=== PATIENT | male | born 1945 | race Hispanic/Latino ===

== ENCOUNTER → 2020-07-17 | Day surgery (SDC) | payer MEDICARE ==
[2020-07-15 14:39] LABS: BASOPHILS % 0.5 % (0.0-1.0); EOSINOPHILS # (AUTO) 0.3 (0.0-0.4); HEMATOCRIT 40.1 % (38.2-49.6); HEMOGLOBIN 13.4 g/dL (14.0-18.0); LYMPHOCYTES # (AUTO) 2.1 (1.0-3.2); LYMPHOCYTES % 24.5 % (18.0-39.1); MEAN CORPUSCULAR HEMOGLOBIN 29.3 pg (28-32); MEAN CORPUSCULAR HGB CONC 33.4 g/dL (31-35); MEAN CORPUSCULAR VOLUME 87.6 fL (81-99); MONOCYTES # (AUTO) 0.9 (0.2-0.8); NEUTROPHILS # (AUTO) 5.3 (2.1-6.9); NEUTROPHILS % 61.4 % (38.7-80.0); PLATELET COUNT 273 x10e3/uL (140-360); RED BLOOD COUNT 4.58 x10e6/uL (4.3-5.7); RED CELL DISTRIBUTION WIDTH 13.2 % (11.7-14.4)
[2020-07-15 14:56] LABS: ANION GAP 11.3 mmol/L (8-16); BLOOD UREA NITROGEN 9 mg/dL (7-26); BUN/CREATININE RATIO 11 (6-25); CALCIUM 8.7 mg/dL (8.4-10.2); CARBON DIOXIDE 25 mmol/L (22-29); CHLORIDE 100 mmol/L (98-107); CREATININE, SERUM 0.83 mg/dL (0.72-1.25); EST GLOMERULAR FILTRATION RATE > 60 ML/MIN (60-); GLUCOSE 105 mg/dL (74-118); POTASSIUM 4.3 mmol/L (3.5-5.1); SODIUM 132 mmol/L (136-145)
[~2020-07-17] MED LIST: AMLODIPINE BES2.5 MG PO; ASPIR 8181 MG PO; B&O 60MG R/S 60 MG SUPP PR ONE; DEXAMETHASONE SOD PHOS INJ 4 MG/ML VIAL ONE; DIOVAN320 MG PO; FLOMAX0.4 MG PO; GENTAMICIN 80MG/NS 100 ML 200 ML IV ONE; IOPAMIDOL 300MG/ML 50ML INFUS..BTL IV ONE; LIDOCAINE HCL 2% LOCAL INJ 5 ML SDV VIAL INJ ONE; METOPROLOL SUCC25 MG PO; MIDAZOLAM HCL 2 MG/2 ML VIAL ONE; ONDANSETRON HCL INJ 2MG/ML 2ML 2 MG/ML VIAL ONE; PIPER-TAZ 3.375 GM 50 ML ONE; PREDNISONE5 MG PO; PROPOFOL IV EMULSION 10 MG/ML 20 ML VIAL ONE; SEVOFLURANE INHAL SOLN 250 ML PEN BTL ONE; SIMVASTATIN10 MG PO; VALSARTAN-HCTZ1 EAC4 PO; VASOTEC10 MG PO
[2020-07-17 10:45] VITALS: BP 140/78
== END | disposition home or self-care (01) ==
LOC: OR 06:54
PROVIDERS: ATTEND Urology
DX: C61 Malignant neoplasm of prostate (principal); N41.1 Chronic prostatitis; N40.1 Benign prostatic hyperplasia with lower urinary tract symptoms; N13.8 Other obstructive and reflux uropathy; R39.14 Feeling of incomplete bladder emptying; N40.2 Nodular prostate without lower urinary tract symptoms; N32.89 Other specified disorders of bladder; I69.351 Hemiplegia and hemiparesis following cerebral infarction affecting right dominant side; M06.9 Rheumatoid arthritis, unspecified; I10 Essential (primary) hypertension; E78.5 Hyperlipidemia, unspecified; K21.9 Gastro-esophageal reflux disease without esophagitis; I49.3 Ventricular premature depolarization; Z01.810 Encounter for preprocedural cardiovascular examination; Z01.812 Encounter for preprocedural laboratory examination; Z01.818 Encounter for other preprocedural examination; Z20.822 Contact with and (suspected) exposure to COVID-19; Z79.82 Long term (current) use of aspirin; Z86.16 Personal history of COVID-19
CPT/HCPCS: 52005; 55700; C9740; 36415; 71046; 74420; 76872; 76998; 80048; 85025; 88305; 88342; 93005; C1758; J1100; J1580; J2001; J2250; J2405; J2543; L8699; U0002

== ENCOUNTER 2020-12-11 06:30 | Inpatient (IN) | payer MEDICARE ==
[2020-12-06 10:39] LABS: BASOPHILS % 0.3 % (0.0-1.0); EOSINOPHILS # (AUTO) 0.1 (0.0-0.4); EOSINOPHILS % 0.7 % (0.0-6.0); HEMATOCRIT 39.9 % (38.2-49.6); HEMOGLOBIN 13.3 g/dL (14.0-18.0); LYMPHOCYTES # (AUTO) 2.2 (1.0-3.2); LYMPHOCYTES % 20.2 % (18.0-39.1); MEAN CORPUSCULAR HEMOGLOBIN 28.8 pg (28-32); MEAN CORPUSCULAR HGB CONC 33.3 g/dL (31-35); MEAN CORPUSCULAR VOLUME 86.4 fL (81-99); MONOCYTES # (AUTO) 0.7 (0.2-0.8); MONOCYTES % 6.7 % (4.4-11.3); NEUTROPHILS # (AUTO) 7.9 (2.1-6.9); NEUTROPHILS % 71.1 % (38.7-80.0); PLATELET COUNT 238 x10e3/uL (140-360); RED BLOOD COUNT 4.62 x10e6/uL (4.3-5.7); RED CELL DISTRIBUTION WIDTH 15.1 % (11.7-14.4)
[2020-12-06 11:03] LABS: ANION GAP 12.5 mmol/L (8-16); CALCIUM 9.1 mg/dL (8.4-10.2); CREATININE, SERUM 0.88 mg/dL (0.72-1.25); POTASSIUM 4.5 mmol/L (3.5-5.1)
[~2020-12-11] VITALS: Ht 165.1 cm; Wt 69.9 kg
[~2020-12-11 06:30] MED LIST changes: -B&O 60MG R/S 60 MG SUPP PR ONE; -DEXAMETHASONE SOD PHOS INJ 4 MG/ML VIAL ONE; -GENTAMICIN 80MG/NS 100 ML 200 ML IV ONE; -IOPAMIDOL 300MG/ML 50ML INFUS..BTL IV ONE; -LIDOCAINE HCL 2% LOCAL INJ 5 ML SDV VIAL INJ ONE; -MIDAZOLAM HCL 2 MG/2 ML VIAL ONE; -ONDANSETRON HCL INJ 2MG/ML 2ML 2 MG/ML VIAL ONE; -PIPER-TAZ 3.375 GM 50 ML ONE; -PROPOFOL IV EMULSION 10 MG/ML 20 ML VIAL ONE; -SEVOFLURANE INHAL SOLN 250 ML PEN BTL ONE
[2020-12-11] MEDS ORDERED: CEFTRIAXONE 1 GM VIAL ONE (07:10)
[2020-12-11] MEDS ORDERED: GENTAMICIN 80MG/NS 100 ML 200 ML IV ONE (07:11)
[2020-12-11] MEDS ORDERED: SODIUM CHLORIDE 0.9% 50ML 50 ML ONE (07:11)
[2020-12-11] MEDS ORDERED: SODIUM CHLORIDE 0.9% 1000ML 1,000 ML ONE (07:11)
[2020-12-11] MEDS ORDERED: B&O 60MG R/S 60 MG SUPP PR ONE (08:50)
[2020-12-11] MEDS ORDERED: IOPAMIDOL 300MG/ML 50ML INFUS..BTL IV ONE (08:50)
[2020-12-11] MEDS ORDERED: ACETAMINOPHEN/CODEINE 300MG - 30MG TAB PO PRN (11:15)
[2020-12-11] MEDS ORDERED: DIPHENHYDRAMINE HCL 25 MG CAP PO PRN (11:15)
[2020-12-11] MEDS ORDERED: B&O 60MG R/S 60 MG SUPP PR PRN (11:15)
[2020-12-11] MEDS ORDERED: ONDANSETRON HCL INJ 2MG/ML 2ML 2 MG/ML VIAL IV PRN (11:15)
[2020-12-11] MEDS ORDERED: PHENAZOPYRIDINE HCL 100 MG TAB PO PRN (11:15)
[2020-12-11] MEDS ORDERED: FENTANYL CITRATE/PF 100MCG/2 ML INJ ONE ×2 (11:28→13:30)
[2020-12-11 11:45] LABS: BASOPHILS % 0.2 % (0.0-1.0); EOSINOPHILS % 0.2 % (0.0-6.0); HEMATOCRIT 42.7 % (38.2-49.6); HEMOGLOBIN 13.8 g/dL (14.0-18.0); LYMPHOCYTES # (AUTO) 1.3 (1.0-3.2); LYMPHOCYTES % 10.2 % (18.0-39.1); MEAN CORPUSCULAR HEMOGLOBIN 28.8 pg (28-32); MEAN CORPUSCULAR HGB CONC 32.3 g/dL (31-35); MONOCYTES # (AUTO) 0.2 (0.2-0.8); MONOCYTES % 1.9 % (4.4-11.3); NEUTROPHILS # (AUTO) 11.1 (2.1-6.9); NEUTROPHILS % 86.7 % (38.7-80.0); PLATELET COUNT 219 x10e3/uL (140-360); RED CELL DISTRIBUTION WIDTH 15.4 % (11.7-14.4)
[2020-12-11 12:12] LABS: ANION GAP 13.1 mmol/L (8-16); CALCIUM 8.3 mg/dL (8.4-10.2); CREATININE, SERUM 0.76 mg/dL (0.72-1.25); POTASSIUM 4.1 mmol/L (3.5-5.1)
[2020-12-11] MEDS ORDERED: PROPOFOL IV EMULSION 10 MG/ML 20 ML VIAL ONE (12:22)
[2020-12-11] MEDS ORDERED: POVIDONE IODINE 0.05% 0.05 % ML PO ONE (12:22)
[2020-12-11] MEDS ORDERED: LIDOCAINE HCL 2% LOCAL INJ 5 ML SDV VIAL INJ ONE (12:22)
[2020-12-11] MEDS ORDERED: HYDROCORTISONE SOD SUCCINATE 100 MG VIAL ONE (12:22)
[2020-12-11] MEDS ORDERED: EPHEDRINE SULFATE INJ 50 MG/ML VIAL ONE (12:22)
[2020-12-11] MEDS ORDERED: SEVOFLURANE INHAL SOLN 250 ML PEN BTL ONE (12:22)
[2020-12-11] MEDS ORDERED: ONDANSETRON HCL INJ 2MG/ML 2ML 2 MG/ML VIAL ONE (12:22)
[2020-12-11 13:51] VITALS: BP 113/56
[2020-12-11 13:53] VITALS: BP 116/58
[2020-12-11] MEDS: D5.45%NS/KCL 20MEQ 1,000 ML IV SCH ×2 (14:53→21:07)
[2020-12-11] MEDS: DOCUSATE SODIUM 100 MG CAP PO SCH (16:29)
[2020-12-11 16:42] VITALS: BP 115/57
[2020-12-11 20:24] VITALS: BP 105/59
[2020-12-11] MEDS ORDERED: SIMVASTATIN 20 MG TAB PO SCH (21:00)
[2020-12-11 22:12] VITALS: BP 105/59
[2020-12-11 23:48] VITALS: BP 103/47
[2020-12-12] MEDS: D5.45%NS/KCL 20MEQ 1,000 ML IV SCH (04:55)
[2020-12-12 05:04] VITALS: BP 100/45
[2020-12-12 05:52] LABS: BASOPHILS % 0.2 % (0.0-1.0); EOSINOPHILS # (AUTO) 0.1 (0.0-0.4); EOSINOPHILS % 0.9 % (0.0-6.0); HEMATOCRIT 37.2 % (38.2-49.6); HEMOGLOBIN 12.3 g/dL (14.0-18.0); LYMPHOCYTES # (AUTO) 2.8 (1.0-3.2); LYMPHOCYTES % 21.6 % (18.0-39.1); MEAN CORPUSCULAR HEMOGLOBIN 28.7 pg (28-32); MEAN CORPUSCULAR HGB CONC 33.1 g/dL (31-35); MEAN CORPUSCULAR VOLUME 86.9 fL (81-99); MONOCYTES # (AUTO) 0.9 (0.2-0.8); MONOCYTES % 6.9 % (4.4-11.3); NEUTROPHILS # (AUTO) 9.1 (2.1-6.9); NEUTROPHILS % 69.9 % (38.7-80.0); PLATELET COUNT 240 x10e3/uL (140-360); RED BLOOD COUNT 4.28 x10e6/uL (4.3-5.7); RED CELL DISTRIBUTION WIDTH 15.7 % (11.7-14.4)
[2020-12-12 06:23] LABS: ANION GAP 10.6 mmol/L (8-16); CALCIUM 8.3 mg/dL (8.4-10.2); CREATININE, SERUM 0.72 mg/dL (0.72-1.25); POTASSIUM 3.6 mmol/L (3.5-5.1)
[2020-12-12 07:39] VITALS: BP 126/54
[2020-12-12 07:44] VITALS: BP 126/54
[2020-12-12] MEDS: DOCUSATE SODIUM 100 MG CAP PO SCH (08:18)
[2020-12-12] MEDS ORDERED: CEFTRIAXONE 1 GM in SODIUM CHLORIDE 0.9% 50ML 50 ML IV SCH (09:00)
[2020-12-12] MEDS ORDERED: AMLODIPINE BESYLATE 5 MG TAB PO SCH (09:00)
[2020-12-12] MEDS ORDERED: VALSARTAN 160 MG TAB PO SCH (09:00)
[2020-12-12] MEDS ORDERED: TAMSULOSIN HCL 0.4 MG CAP PO SCH (09:00)
[2020-12-12] MEDS ORDERED: HYDROCHLOROTHIAZIDE 25 MG TAB PO SCH (09:00)
[2020-12-12] MEDS ORDERED: PREDNISONE 5 MG TAB PO SCH (09:00)
[2020-12-12] MEDS ORDERED: METOPROLOL SUCCINATE 25 MG TAB XL PO SCH (09:00)
[2020-12-12] MEDS ORDERED: CEFTIN PO (09:25)
[2020-12-16] MEDS ORDERED: ASPIRIN 81 MG CHEW TAB PO SCH (09:00)
== END 2020-12-12 10:46 | disposition home or self-care (01) | DRG 713 ==
LOC: OR 06:30 → PACU V 11:03 → MED/SURG 13:50
PROVIDERS: ADMIT Internal Medicine; ATTEND Internal Medicine
PROC: BT141ZZ Fluoroscopy of Kidneys, Ureters and Bladder using Low Osmolar Contrast (ICD-10-PCS; 2020-12-11)
PROC: 0TPD8DZ Removal of Intraluminal Device from Urethra, Via Natural or Artificial Opening Endoscopic (ICD-10-PCS; 2020-12-11)
PROC: 0T7D8ZZ Dilation of Urethra, Via Natural or Artificial Opening Endoscopic (ICD-10-PCS; principal; 2020-12-11 09:13)
PROC: 0V508ZZ Destruction of Prostate, Via Natural or Artificial Opening Endoscopic (ICD-10-PCS; 2020-12-11 09:13)
DX: N40.1 Benign prostatic hyperplasia with lower urinary tract symptoms (principal); N13.8 Other obstructive and reflux uropathy; C61 Malignant neoplasm of prostate; I25.2 Old myocardial infarction; I25.10 Atherosclerotic heart disease of native coronary artery without angina pectoris; I10 Essential (primary) hypertension; E78.5 Hyperlipidemia, unspecified; Z86.73 Personal history of transient ischemic attack (TIA), and cerebral infarction without residual deficits; R39.14 Feeling of incomplete bladder emptying; N35.912 Unspecified bulbous urethral stricture, male
CPT/HCPCS: 36415; 74420; 80048; 83735; 85025; 93005; C1758; J0696; J1580; J3010; J7030; J7512

== ENCOUNTER → 2021-09-25 | Day surgery (SDC) | payer MEDICARE, OTHER ==
[2021-09-22 07:49] LABS: BASOPHILS % 0.4 % (0.0-1.0); EOSINOPHILS # (AUTO) 0.2 (0.0-0.4); EOSINOPHILS % 2.2 % (0.0-6.0); HEMATOCRIT 37.4 % (38.2-49.6); HEMOGLOBIN 12.5 g/dL (14.0-18.0); LYMPHOCYTES # (AUTO) 2.2 (1.0-3.2); LYMPHOCYTES % 22.9 % (18.0-39.1); MEAN CORPUSCULAR HEMOGLOBIN 29.7 pg (28-32); MEAN CORPUSCULAR HGB CONC 33.4 g/dL (31-35); MEAN CORPUSCULAR VOLUME 88.8 fL (81-99); MONOCYTES # (AUTO) 0.6 (0.2-0.8); MONOCYTES % 6.5 % (4.4-11.3); NEUTROPHILS # (AUTO) 6.4 (2.1-6.9); NEUTROPHILS % 67.7 % (38.7-80.0); PLATELET COUNT 230 x10e3/uL (140-360); RED BLOOD COUNT 4.21 x10e6/uL (4.3-5.7); RED CELL DISTRIBUTION WIDTH 14.7 % (11.7-14.4)
[~2021-09-25] MED LIST changes: +CEFTIN PO; +CITRACAL + BON1 EACH PO; +DICYCLOMINE HCL10 MG PO; +DIOVAN160 MG PO; +FERROUS SULFAT324 MG PO; +FOLIC ACID0.4 MG PO; +LEVOTHYROXINE50 MCG PO; +LIDOCAINE HCL 2% LOCAL INJ 5 ML SDV VIAL INJ ONE; +MELOXICAM7.5 MG PO; +OMEPRAZOLE40 MG PO; +OXYBUTYNIN CHLOR5 M1 PO; +PROPOFOL IV EMULSION 10 MG/ML 20 ML VIAL ONE; +PROTONIX20 MG PO; +SUCRALFATE1 GM PO
[2021-09-25 08:30] VITALS: BP 142/76
== END | disposition home or self-care (01) ==
LOC: OR 05:47
PROVIDERS: ATTEND Internal Medicine Gastroenterology
DX: K29.50 Unspecified chronic gastritis without bleeding (principal); K31.A11 Gastric intestinal metaplasia without dysplasia, involving the antrum; K20.90 Esophagitis, unspecified without bleeding; K44.9 Diaphragmatic hernia without obstruction or gangrene; K21.9 Gastro-esophageal reflux disease without esophagitis; Z71.3 Dietary counseling and surveillance; C61 Malignant neoplasm of prostate; E66.3 Overweight; I10 Essential (primary) hypertension; E03.9 Hypothyroidism, unspecified; I69.359 Hemiplegia and hemiparesis following cerebral infarction affecting unspecified side; E78.5 Hyperlipidemia, unspecified; F41.9 Anxiety disorder, unspecified; Z01.810 Encounter for preprocedural cardiovascular examination; Z01.812 Encounter for preprocedural laboratory examination; Z20.822 Contact with and (suspected) exposure to COVID-19; Z79.82 Long term (current) use of aspirin; Z79.899 Other long term (current) drug therapy; Z68.26 Body mass index [BMI] 26.0-26.9, adult; Z86.16 Personal history of COVID-19
CPT/HCPCS: 36415; 43239; 85025; 93005; J2001; U0002

== ENCOUNTER → 2022-01-22 | Day surgery (SDC) | payer MEDICARE, OTHER ==
[2022-01-20 08:47] LABS: BASOPHILS % 0.4 % (0.0-1.0); EOSINOPHILS # (AUTO) 0.3 (0.0-0.4); EOSINOPHILS % 3.1 % (0.0-6.0); HEMATOCRIT 35.9 % (38.2-49.6); LYMPHOCYTES % 20.9 % (18.0-39.1); MEAN CORPUSCULAR HEMOGLOBIN 30.1 pg (28-32); MEAN CORPUSCULAR HGB CONC 33.4 g/dL (31-35); MONOCYTES # (AUTO) 0.9 (0.2-0.8); MONOCYTES % 9.1 % (4.4-11.3); NEUTROPHILS # (AUTO) 6.2 (2.1-6.9); NEUTROPHILS % 66.1 % (38.7-80.0); PLATELET COUNT 248 x10e3/uL (140-360); RED BLOOD COUNT 3.99 x10e6/uL (4.3-5.7); RED CELL DISTRIBUTION WIDTH 15.1 % (11.7-14.4)
[~2022-01-22] MED LIST changes: -LIDOCAINE HCL 2% LOCAL INJ 5 ML SDV VIAL INJ ONE; +MIDAZOLAM HCL 2 MG/2 ML VIAL ONE
[2022-01-22 07:43] VITALS: BP 116/64
== END | disposition home or self-care (01) ==
LOC: OR 08:20
PROVIDERS: ATTEND Internal Medicine Gastroenterology
DX: K92.1 Melena (principal); K57.30 Diverticulosis of large intestine without perforation or abscess without bleeding; K64.8 Other hemorrhoids; K21.9 Gastro-esophageal reflux disease without esophagitis; R63.4 Abnormal weight loss; I10 Essential (primary) hypertension; Z78.9 Other specified health status; E78.5 Hyperlipidemia, unspecified; E03.9 Hypothyroidism, unspecified; N40.0 Benign prostatic hyperplasia without lower urinary tract symptoms; M06.9 Rheumatoid arthritis, unspecified; M19.90 Unspecified osteoarthritis, unspecified site; Z01.810 Encounter for preprocedural cardiovascular examination; Z01.812 Encounter for preprocedural laboratory examination; Z20.822 Contact with and (suspected) exposure to COVID-19; Z79.82 Long term (current) use of aspirin; Z79.899 Other long term (current) drug therapy; Z86.73 Personal history of transient ischemic attack (TIA), and cerebral infarction without residual deficits
CPT/HCPCS: 0223U; 36415; 45378; 85025; 93005; J2250

== ENCOUNTER 2022-02-22 18:08 | Emergency (ER) | payer MEDICARE, OTHER ==
[~2022-02-22] VITALS: Ht 165.1 cm; Wt 69.9 kg
[~2022-02-22 18:08] MED LIST changes: -MIDAZOLAM HCL 2 MG/2 ML VIAL ONE; -PROPOFOL IV EMULSION 10 MG/ML 20 ML VIAL ONE
[2022-02-22] MEDS ORDERED: METHYLPREDNISOLONE SOD SUCC 125 MG/2ML VIAL IV STA (18:36)
[2022-02-22] MEDS ORDERED: SODIUM CHLORIDE 0.9% 1000ML 1,000 ML IV STA (18:36)
[2022-02-22] MEDS ORDERED: KETOROLAC TROMETHAMINE 30 MG/ML VIAL IV STA (18:36)
[2022-02-22] MEDS ORDERED: METOCLOPRAMIDE HCL 10 MG/2ML VIAL IV STA (18:36)
[2022-02-22] MEDS ORDERED: DIPHENHYDRAMINE HCL INJ 50 MG/ML VIAL IV STA (18:36)
[2022-02-22 20:26] VITALS: BP 130/70
== END 2022-02-22 20:28 | disposition home or self-care (01) ==
LOC: ER 18:14
DX: R51.9 Headache, unspecified (principal); I16.0 Hypertensive urgency; I10 Essential (primary) hypertension; K21.9 Gastro-esophageal reflux disease without esophagitis; E78.00 Pure hypercholesterolemia, unspecified; I25.2 Old myocardial infarction
CPT/HCPCS: 70450; 99283; J1200; J1885; J2765; J2930; J7030

== ENCOUNTER → 2022-03-24 | Day surgery (SDC) | payer MEDICARE, OTHER ==
[~2022-03-24] MED LIST changes: +MIDAZOLAM HCL 2 MG/2 ML VIAL ONE; +OR PHACO EYE KIT ONE; +PREOP PHACO EYE KIT ONE
[2022-03-24 11:15] VITALS: BP 135/71
== END | disposition home or self-care (01) ==
LOC: OR 09:20
PROVIDERS: ATTEND Ophthalmology
DX: H25.12 Age-related nuclear cataract, left eye (principal); H57.09 Other anomalies of pupillary function; I10 Essential (primary) hypertension; I69.351 Hemiplegia and hemiparesis following cerebral infarction affecting right dominant side; E05.90 Thyrotoxicosis, unspecified without thyrotoxic crisis or storm; M06.9 Rheumatoid arthritis, unspecified; K21.9 Gastro-esophageal reflux disease without esophagitis; Z79.82 Long term (current) use of aspirin; Z79.899 Other long term (current) drug therapy; Z85.46 Personal history of malignant neoplasm of prostate
CPT/HCPCS: J2250

== ENCOUNTER → 2022-04-21 | Day surgery (SDC) | payer MEDICARE, OTHER ==
[2022-04-16 11:32] LABS: BASOPHILS % 0.4 % (0.0-1.0); EOSINOPHILS # (AUTO) 0.3 (0.0-0.4); HEMATOCRIT 35.3 % (38.2-49.6); HEMOGLOBIN 11.2 g/dL (14.0-18.0); LYMPHOCYTES # (AUTO) 1.6 (1.0-3.2); MEAN CORPUSCULAR HEMOGLOBIN 28.9 pg (28-32); MEAN CORPUSCULAR HGB CONC 31.7 g/dL (31-35); MONOCYTES # (AUTO) 0.9 (0.2-0.8); MONOCYTES % 12.6 % (4.4-11.3); NEUTROPHILS # (AUTO) 4.3 (2.1-6.9); NEUTROPHILS % 60.3 % (38.7-80.0); PLATELET COUNT 218 x10e3/uL (140-360); RED BLOOD COUNT 3.88 x10e6/uL (4.3-5.7); RED CELL DISTRIBUTION WIDTH 13.7 % (11.7-14.4)
[~2022-04-21] MED LIST changes: -MIDAZOLAM HCL 2 MG/2 ML VIAL ONE
[2022-04-21 14:10] VITALS: BP 132/64
== END | disposition home or self-care (01) ==
LOC: OR 09:30
PROVIDERS: ATTEND Ophthalmology
DX: H25.11 Age-related nuclear cataract, right eye (principal); C61 Malignant neoplasm of prostate; I69.351 Hemiplegia and hemiparesis following cerebral infarction affecting right dominant side; I10 Essential (primary) hypertension; E03.9 Hypothyroidism, unspecified; I25.2 Old myocardial infarction; N40.0 Benign prostatic hyperplasia without lower urinary tract symptoms; K21.9 Gastro-esophageal reflux disease without esophagitis; M06.9 Rheumatoid arthritis, unspecified; Z01.810 Encounter for preprocedural cardiovascular examination; Z01.812 Encounter for preprocedural laboratory examination; Z79.82 Long term (current) use of aspirin; Z79.899 Other long term (current) drug therapy
CPT/HCPCS: 36415; 85025; 93005; V2632

== ENCOUNTER → 2022-05-12 | Outpatient (CLI) | payer OTHER ==
[~2022-05-12] MED LIST changes: +IOPAMIDOL 370 MG/ML 100 ML INFUS..BTL INJ ONE; -OR PHACO EYE KIT ONE; -PREOP PHACO EYE KIT ONE; +SODIUM CHLORIDE 0.9% 250ML 250 ML ONE
[2022-05-12 10:57] LABS: CREATININE, SERUM 0.79 mg/dL (0.72-1.25)
== END ==
LOC: CT 09:48
PROVIDERS: ATTEND Urology
DX: R31.0 Gross hematuria (principal)
CPT/HCPCS: 36415; 74178; 82565; 84520; J7050; Q9967

== ENCOUNTER → 2023-10-25 | Outpatient (REF) | payer MEDICARE ==
[~2023-10-25] MED LIST changes: -IOPAMIDOL 370 MG/ML 100 ML INFUS..BTL INJ ONE; -SODIUM CHLORIDE 0.9% 250ML 250 ML ONE; +ULTRAM 50MG50 MG PO
== END ==
LOC: CT 15:08
PROVIDERS: ATTEND Urology
DX: N20.0 Calculus of kidney (principal)
CPT/HCPCS: 74176

== ENCOUNTER 2024-06-04 07:44 | Emergency (ER) | payer MEDICARE, OTHER ==
[~2024-06-04] VITALS: Ht 165.1 cm; Wt 64.4 kg
[2024-06-04 07:58] VITALS: TEMP 97.8
[2024-06-04 08:23] LABS: BASOPHILS # (AUTO) 0.1 (0.0-0.1); BASOPHILS % 0.6 % (0.0-1.0); EOSINOPHILS # (AUTO) 0.3 (0.0-0.4); EOSINOPHILS % 3.1 % (0.0-6.0); HEMOGLOBIN 11.5 g/dL (14.0-18.0); LYMPHOCYTES # (AUTO) 1.7 (1.0-3.2); MEAN CORPUSCULAR HEMOGLOBIN 28.5 pg (28-32); MEAN CORPUSCULAR HGB CONC 30.3 g/dL (31-35); MEAN CORPUSCULAR VOLUME 94.1 fL (81-99); MONOCYTES # (AUTO) 0.4 (0.2-0.8); NEUTROPHILS # (AUTO) 5.9 (2.1-6.9); NEUTROPHILS % 70.6 % (38.7-80.0); PLATELET COUNT 270 x10e3/uL (140-360); RED BLOOD COUNT 4.04 x10e6/uL (4.3-5.7); RED CELL DISTRIBUTION WIDTH 16.6 % (11.7-14.4); WHITE BLOOD COUNT 8.37 x10e3/uL (4.8-10.8)
[2024-06-04 08:42] LABS: ALBUMIN 3.1 g/dL (3.5-5.0); ALBUMIN/GLOBULIN RATIO 0.7 (0.8-2.0); ANION GAP 12.8 mmol/L (8-16); BILIRUBIN,TOTAL 0.4 mg/dL (0.2-1.2); CALCIUM 8.6 mg/dL (8.4-10.2); CREATININE, SERUM 0.84 mg/dL (0.72-1.25); POTASSIUM 3.8 mmol/L (3.5-5.1); TOTAL PROTEIN 7.8 g/dL (6.5-8.1)
[2024-06-04 08:46] LABS: INR 0.97; PROTHROMBIN TIME 13.5 seconds (11.9-14.5)
[2024-06-04 08:47] LABS: PARTIAL THROMBOPLASTIN TIME 32.7 seconds (23.8-35.5)
[2024-06-04 09:48] LABS: BILIRUBIN,URINE NEGATIVE (NEGATIVE); CLARITY,URINE SL CLOUDY (CLEAR); COLOR,URINE RED (YELLOW); GLUCOSE, URINE NEGATIVE (NEGATIVE); KETONES,URINE NEGATIVE (NEGATIVE); LEUKOCYTE ESTERASE ,URINE TRACE (NEGATIVE); NITRITE,URINE NEGATIVE (NEGATIVE); PH,URINE 6 (5 - 7); PROTEIN,URINE DIPSTICK 1+ (NEGATIVE); URINE UROBILINOGEN 0.2 mg/dL (0.2 - 1)
[2024-06-04 10:02] LABS: BACTERIA,URINE FEW /HPF; EPITHELIAL CELLS,URINE RARE /LPF; RBC,URINE >50 /HPF (0-5); WBC,URINE (MAN) 0-5 /HPF (0-5)
[2024-06-04] MEDS ORDERED: IOPAMIDOL 370 MG/ML 100 ML INFUS..BTL INJ ONE (10:31)
[2024-06-04] MEDS ORDERED: SODIUM CHLORIDE 0.9% 250ML 250 ML ONE (10:31)
[2024-06-04 12:17] VITALS: PULSE 62; RESP 16; O2SAT 100
[2024-06-04] MEDS ORDERED: CEFUROXIME250 MG PO (12:34)
== END 2024-06-04 12:48 | disposition home or self-care (01) ==
LOC: ER 07:54
DX: R31.9 Hematuria, unspecified (principal); I10 Essential (primary) hypertension; E78.5 Hyperlipidemia, unspecified; K76.9 Liver disease, unspecified; M06.9 Rheumatoid arthritis, unspecified; K21.9 Gastro-esophageal reflux disease without esophagitis; R94.31 Abnormal electrocardiogram [ECG] [EKG]; I25.2 Old myocardial infarction
CPT/HCPCS: 36415; 74178; 80053; 81001; 85025; 85610; 85730; 87086; 93005; 99284; J7050; Q9967

== ENCOUNTER → 2024-07-10 | Outpatient (REF) | payer OTHER ==
[~2024-07-10] MED LIST changes: +CEFUROXIME250 MG PO
== END ==
LOC: DX 09:44
PROVIDERS: ATTEND Internal Medicine Critical Care Medicine
DX: R05.9 Cough, unspecified (principal); J47.0 Bronchiectasis with acute lower respiratory infection; M05.70 Rheumatoid arthritis with rheumatoid factor of unspecified site without organ or systems involvement
CPT/HCPCS: 74230

== ENCOUNTER 2024-12-21 17:13 | Emergency (ER) | payer SELFPAY ==
[~2024-12-21 17:13] MED LIST changes: +AMBIEN10 MG PO; +FAMOTIDINE20 MG PO; +LOSARTAN POTAS100 MG PO; +METHOTREXATE2.5 MG PO; +MYCOPHENOLATE250 MG PO; +NEURONTIN100 MG PO
[2024-12-21 17:20] VITALS: PULSE 70; RESP 20; TEMP 99; O2SAT 96
[2024-12-21] MEDS ORDERED: BACLOFEN10 MG PO (18:31)
== END 2024-12-21 18:40 | disposition home or self-care (01) ==
LOC: FSED 17:21
DX: S00.83XA Contusion of other part of head, initial encounter (principal); M54.2 Cervicalgia; R51.9 Headache, unspecified; W01.198A Fall on same level from slipping, tripping and stumbling with subsequent striking against other object, initial encounter; Y93.01 Activity, walking, marching and hiking; Y92.89 Other specified places as the place of occurrence of the external cause; I10 Essential (primary) hypertension; E78.5 Hyperlipidemia, unspecified; K76.9 Liver disease, unspecified; M06.9 Rheumatoid arthritis, unspecified; K21.9 Gastro-esophageal reflux disease without esophagitis; I25.2 Old myocardial infarction
CPT/HCPCS: 70450; 72125; 99284

== ENCOUNTER 2024-12-31 11:41 | Emergency (ER) | payer MEDICARE, OTHER ==
[~2024-12-31 11:41] MED LIST changes: +BACLOFEN10 MG PO
[2024-12-31 11:45] VITALS: PULSE 67; RESP 18; TEMP 98.5; O2SAT 98
[2024-12-31] MEDS: IBUPROFEN 400 MG TAB PO ONE (12:06)
== END 2024-12-31 13:52 | disposition home or self-care (01) ==
LOC: FSED 12:01 → EDBD 12:01 → FSED 13:52
DX: M25.552 Pain in left hip (principal); W18.39XA Other fall on same level, initial encounter; Y92.89 Other specified places as the place of occurrence of the external cause; I10 Essential (primary) hypertension; E78.5 Hyperlipidemia, unspecified; K21.9 Gastro-esophageal reflux disease without esophagitis; K76.9 Liver disease, unspecified; M06.9 Rheumatoid arthritis, unspecified; I25.2 Old myocardial infarction
CPT/HCPCS: 72192; 99284

== ENCOUNTER 2025-01-22 14:14 | Inpatient (IN) | payer MEDICARE, OTHER ==
[~2025-01-22] VITALS: Ht 162.6 cm; Wt 56.2 kg
[2025-01-22 15:15] LABS: BASOPHILS % 0.3 % (0.0-1.0); EOSINOPHILS % 0.2 % (0.0-6.0); LYMPHOCYTES % 8.5 % (18.0-39.1); MONOCYTES % 3.8 % (4.4-11.3); NEUTROPHILS % 86.8 % (38.7-80.0); RED CELL DISTRIBUTION WIDTH 16.9 % (11.7-14.4)
[2025-01-22 15:30] LABS: INR 1.02
[2025-01-22] MEDS: SODIUM CHLORIDE 0.9% 1000ML 1,000 ML IV STA (15:32)
[2025-01-22 15:37] LABS: EST GLOMERULAR FILTRATION RATE 61.0 ML/MIN (>=60)
[2025-01-22] MEDS ORDERED: SODIUM CHLORIDE 0.9% 250ML 250 ML ONE (16:17)
[2025-01-22] MEDS ORDERED: IOPAMIDOL 370 MG/ML 100 ML INFUS..BTL INJ ONE (16:17)
[2025-01-22] MEDS: SODIUM CHLORIDE 0.9% 500ML 500 ML IV ONE (18:25)
[2025-01-22 18:37] LABS: LEUKOCYTE ESTERASE ,URINE NEGATIVE (NEGATIVE); PROTEIN,URINE DIPSTICK 1+ (NEGATIVE); URINE UROBILINOGEN 0.2 mg/dL (0.2 - 1)
[2025-01-22 18:59] VITALS: PULSE 93; RESP 22; TEMP 97.7
[2025-01-22] MEDS ORDERED: ONDANSETRON HCL INJ 2MG/ML 2ML 2 MG/ML VIAL IV PRN (20:45)
[2025-01-22 21:00] VITALS: PULSE 86; RESP 20; O2SAT 99
[2025-01-22] MEDS: SODIUM CHLORIDE 0.9% 1000ML 1,000 ML IV SCH (21:06)
[2025-01-22] MEDS: ACETAMINOPHEN 325 MG TAB PO PRN (21:09)
[2025-01-22 21:40] VITALS: BP 157/59; PULSE 86; RESP 23; TEMP 98; O2SAT 99
[2025-01-23] VITALS (9 sets, daily range): BP systolic 146–160; BP diastolic 58–71; PULSE 71–94; RESP 16–20; TEMP 97.5–98.3; O2SAT 95–100
[2025-01-23] MEDS ORDERED: METHOTREXATE SOD 2.5 MG TAB PO SCH
[2025-01-23] MEDS: ZOLPIDEM TARTRATE 10 MG TAB PO PRN (00:28)
[2025-01-23 05:23] LABS: BASOPHILS % 0.4 % (0.0-1.0); EOSINOPHILS % 1.8 % (0.0-6.0); LYMPHOCYTES % 16.7 % (18.0-39.1); MONOCYTES % 5.5 % (4.4-11.3); NEUTROPHILS % 75.3 % (38.7-80.0); RED CELL DISTRIBUTION WIDTH 17.0 % (11.7-14.4)
[2025-01-23 06:02] LABS: EST GLOMERULAR FILTRATION RATE 80.0 ML/MIN (>=60)
[2025-01-23] MEDS ORDERED: HYDRALAZINE HCL 20 MG/ML VIAL IV PRN (08:15)
[2025-01-23] MEDS ORDERED: ASPIRIN 81 MG CHEW TAB PO SCH (09:00)
[2025-01-23] MEDS: PREDNISONE 5 MG TAB PO SCH (10:00)
[2025-01-23] MEDS: TAMSULOSIN HCL 0.4 MG CAP PO SCH (10:00)
[2025-01-23] MEDS: GABAPENTIN 100 MG CAP PO SCH (10:01)
[2025-01-23] MEDS: PANTOPRAZOLE SOD 40 MG TABEC PO SCH (10:01)
[2025-01-23] MEDS: LOSARTAN POTASSIUM 100 MG TAB PO SCH (10:01)
[2025-01-23] MEDS: FAMOTIDINE 20 MG TAB PO SCH (10:01)
[2025-01-23] MEDS: FOLIC ACID 1 MG TAB PO SCH (10:01)
[2025-01-23] MEDS: MYCOPHENOLATE MOFETIL 250 MG CAP PO SCH (10:01)
[2025-01-23] MEDS: ACETAMINOPHEN 325 MG TAB PO PRN (14:53)
[2025-01-23] MEDS: KETOROLAC TROMETHAMINE 30 MG/ML VIAL IV PRN (16:09)
[2025-01-23] MEDS: SIMVASTATIN 20 MG TAB PO SCH (21:23)
[2025-01-23] MEDS: BACLOFEN 10 MG TAB PO SCH (21:24)
[2025-01-24] VITALS (8 sets, daily range): BP systolic 136–167; BP diastolic 60–77; PULSE 60–72; RESP 16–18; TEMP 97.7–98.6; O2SAT 99–100
[2025-01-24] MEDS: INDOMETHACIN 25 MG CAP PO SCH (09:51)
[2025-01-24] MEDS: COLCHICINE 0.6 MG TAB PO SCH (09:52)
[2025-01-25] VITALS: BP 162/76; PULSE 65; RESP 19; TEMP 97.7; O2SAT 100
[2025-01-25 05:30] LABS: BASOPHILS % 0.2 % (0.0-1.0); EOSINOPHILS % 3.9 % (0.0-6.0); LYMPHOCYTES % 18.3 % (18.0-39.1); MONOCYTES % 6.0 % (4.4-11.3); NEUTROPHILS % 71.1 % (38.7-80.0); RED CELL DISTRIBUTION WIDTH 16.7 % (11.7-14.4)
[2025-01-25 06:04] LABS: EST GLOMERULAR FILTRATION RATE 89.0 ML/MIN (>=60)
[2025-01-25 07:57] VITALS: BP 150/72; PULSE 67; RESP 16; TEMP 98.1; O2SAT 99
[2025-01-25 08:22] VITALS: BP 150/72; PULSE 67; RESP 16; TEMP 98.1; O2SAT 99
[2025-01-25 11:14] VITALS: BP 118/72; PULSE 75; RESP 18; TEMP 98.4; O2SAT 99
[2025-01-25 15:43] VITALS: BP 133/62; PULSE 82; RESP 16; TEMP 97.8; O2SAT 99
[2025-01-25] MEDS: ENOXAPARIN 30 MG/0.3 ML SYR SC SCH (16:30)
[2025-01-25 21:00] VITALS: BP 123/75; PULSE 59; RESP 15; TEMP 98.3; O2SAT 100
[2025-01-26 04:14] VITALS: BP 165/75; PULSE 68; RESP 16; TEMP 97.8; O2SAT 100
[2025-01-26 05:18] LABS: BASOPHILS % 0.5 % (0.0-1.0); EOSINOPHILS % 5.2 % (0.0-6.0); LYMPHOCYTES % 18.9 % (18.0-39.1); MONOCYTES % 5.7 % (4.4-11.3); NEUTROPHILS % 69.2 % (38.7-80.0); RED CELL DISTRIBUTION WIDTH 16.7 % (11.7-14.4)
[2025-01-26 05:47] LABS: EST GLOMERULAR FILTRATION RATE 92.0 ML/MIN (>=60)
[2025-01-26 07:19] VITALS: BP 174/72; PULSE 64; RESP 18; TEMP 98.1; O2SAT 100
[2025-01-26 09:16] VITALS: BP 174/72; PULSE 64; RESP 18; TEMP 98.1; O2SAT 100
[2025-01-26] MEDS: AMLODIPINE BESYLATE 5 MG TAB PO ONE (10:26)
[2025-01-26 11:11] VITALS: BP 158/65; PULSE 83; RESP 18; TEMP 98.2; O2SAT 100
== END 2025-01-26 12:47 | disposition home or self-care (01) | DRG 699 ==
LOC: ER 14:40 → ERHOLD 20:40 → MED/SURG 21:32
PROVIDERS: ADMIT Internal Medicine; ATTEND Internal Medicine
PROC: 0T9B70Z Drainage of Bladder with Drainage Device, Via Natural or Artificial Opening (ICD-10-PCS; principal; 2025-01-22)
DX: N32.89 Other specified disorders of bladder (principal); E44.0 Moderate protein-calorie malnutrition; I31.39 Other pericardial effusion (noninflammatory); R33.9 Retention of urine, unspecified; N13.8 Other obstructive and reflux uropathy; R32 Unspecified urinary incontinence; I10 Essential (primary) hypertension; K21.9 Gastro-esophageal reflux disease without esophagitis; E78.5 Hyperlipidemia, unspecified; M06.9 Rheumatoid arthritis, unspecified; M34.9 Systemic sclerosis, unspecified; N40.1 Benign prostatic hyperplasia with lower urinary tract symptoms; R53.1 Weakness; D64.9 Anemia, unspecified; R31.0 Gross hematuria; G47.00 Insomnia, unspecified; K74.60 Unspecified cirrhosis of liver; I25.10 Atherosclerotic heart disease of native coronary artery without angina pectoris; R13.10 Dysphagia, unspecified; I25.2 Old myocardial infarction; Z86.73 Personal history of transient ischemic attack (TIA), and cerebral infarction without residual deficits; Z68.21 Body mass index [BMI] 21.0-21.9, adult; Z79.52 Long term (current) use of systemic steroids; Z79.82 Long term (current) use of aspirin; Z79.631 Long term (current) use of antimetabolite agent
CPT/HCPCS: 36415; 51700; 71045; 74178; 80048; 80053; 81001; 82550; 82948; 83735; 84484; 85025; 85610; 85730; 87086; 93005; 93306; 94799; 99284; J0696; J1650; J1885; J2470; J7030; J7040; J7050; J7512; Q9967